=== PATIENT | female | born 1960 | race Caucasian/White ===

== ENCOUNTER 2018-11-23 07:09 | Emergency (ER) | payer BC ==
[2018-11-23 07:17] VITALS: BP 123/67
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
== END 2018-11-23 07:50 | disposition home or self-care (01) ==
LOC: UCEAST 07:09
DX: N39.0 Urinary tract infection, site not specified (principal); Z88.1 Allergy status to other antibiotic agents; Z88.8 Allergy status to other drugs, medicaments and biological substances
CPT/HCPCS: 81003; 87077; 87086; 87186; 99212; G0463

== ENCOUNTER 2019-04-18 09:53 | Emergency (ER) | payer BC ==
[2019-04-18] MEDS ORDERED: Silver Sulfadiazine 1%* 20 GM TOPICAL ONE (10:08)
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
[2019-04-18] MEDS ORDERED: Ibuprofen TAB* 400 MG PO ONE (10:19)
[2019-04-18 10:43] VITALS: BP 121/62
== END 2019-04-18 11:14 | disposition home or self-care (01) ==
LOC: UCEAST 09:53
DX: T20.10XA Burn of first degree of head, face, and neck, unspecified site, initial encounter (principal); T23.101A Burn of first degree of right hand, unspecified site, initial encounter; X12.XXXA Contact with other hot fluids, initial encounter; Y93.G3 Activity, cooking and baking; Y92.9 Unspecified place or not applicable; Z88.1 Allergy status to other antibiotic agents
CPT/HCPCS: 16000; 16020; 99212; A9270-GY; G0463

== ENCOUNTER 2019-11-19 07:12 | Emergency (ER) | payer BC ==
[2019-11-19 07:41] VITALS: BP 94/66
--- NOTE | 2019-11-19 07:57 | UC ---
Respiratory Complaint HPI - HPI Summary HPI Summary: 3 DAYS OF SINUS PRESSURE, RIGHT EAR PAIN, MILD SORE THROAT, COUGH AND CONGESTION. NO DOCUMENTED FEVER BUT IS COMPLAINING OF CHILLS. NO NAUSEA/ VOMITING. - History of Current Complaint Chief Complaint: UCRespiratory Stated Complaint: SINUS ISSUE Time Seen by Provider: 11/19/19 07:26 Hx Obtained From: Patient Hx Last Menstrual Period: 09/2008 Onset/Duration: Gradual Onset, Lasting Days, Still Present Timing: Constant Severity Initially: Moderate Severity Currently: Moderate Pain Intensity: 3 Pain Scale Used: 0-10 Numeric Character: Cough: Nonproductive Aggravating Factors: Nothing Alleviating Factors: Nothing Associated Signs And Symptoms: Positive: Chills, URI, Nasal Congestion, Sinus Discomfort. Negative: Fever, Wheezing - Allergies/Home Medications Allergies/Adverse Reactions: Allergies Allergy/AdvReac Type Severity Reaction Status Date / Time erythromycin Allergy Severe swelling/ra Uncoded 11/19/19 07:22 sh levaquin AdvReac leg Uncoded 11/19/19 07:22 weakness Home Medications: Home Medications Acetaminophen [Tylenol] 650 mg PO ONCE PRN 11/19/19 [History Confirmed 11/19/19] guaiFENesin [Mucinex] 1 tab PO ONCE PRN 11/19/19 [History Confirmed 11/19/19] PMH/Surg Hx/FS Hx/Imm Hx Previously Healthy: Yes - Surgical History Surgical History: Yes Surgery Procedure, Year, and Place: . breast implants 11/2011. D&C - Family History Known Family History: Positive: None - Pt denies FMHX, Non-Contributory - Social History Alcohol Use: Rare Substance Use Type: None Smoking Status (MU): Never Smoked Tobacco - Immunization History Hx Tetanus, Diphtheria Vaccination: Yes - 2 weeks ago Review of Systems All Other Systems Reviewed And Are Negative: Yes Constitutional: Positive: Chills, Fatigue ENT: Positive: Sore Throat, Ear Ache, Nasal Discharge, Sinus Congestion Respiratory: Positive: Cough Cardiovascular: Positive: Negative Gastrointestinal: Positive: Negative Physical Exam Triage Information Reviewed: Yes Appearance: Well-Appearing, No Pain Distress, Well-Nourished Vital Signs: Initial Vital Signs Temp 99.1 F 11/19/19 07:18 Pulse 103 11/19/19 07:18 Resp 18 11/19/19 07:18 BP 86/59 11/19/19 07:18 Pulse Ox 100 11/19/19 07:18 Vital Signs Reviewed: Yes Eyes: Positive: Conjunctiva Clear ENT: Positive: Hearing grossly normal, Pharynx normal, TMs normal Neck: Positive: Supple, Nontender, No Lymphadenopathy Respiratory Exam: Normal Cardiovascular Exam: Normal Abdomen Description: Positive: Soft Musculoskeletal: Positive: No Edema Neurological: Positive: Alert Psychological: Positive: Age Appropriate Behavior Skin: Negative: Rashes Respiratory Course/Dx - Course Course Of Treatment: PATIENT WITH LIKELY VIRAL SINUS INFECTION. ENCOURAGED CONSERVATIVE MANAGEMENT WITH REST, HYDRATION, IBUPROFEN. ALSO RECOMMENDED SHE USE AFRIN NASAL SPRAY TO HELP WITH HER CONGESTION AND SINUS PRESSURE. AMOXICILLIN SENT TO PHARMACY. IF SHE IS NOT FEELING IMPROVED OVER THE NEXT SEVERAL DAYS SHE WILL FILL THE RX. FOLLOW-UP WITH PCP IF NEEDED. - Differential Dx/Diagnosis Provider Diagnosis: Acute sinusitis Discharge ED - Sign-Out/Discharge Documenting (check all that apply): Patient Departure All imaging exams completed and their final reports reviewed: No Studies - Discharge Plan Condition: Stable Disposition: HOME Prescriptions: Amoxicillin PO (*) [Amoxicillin 500 MG CAP*] 1,000 mg PO Q12H #40 cap Patient Education Materials: Sinusitis (ED) Referrals: Casey Alberts MD [Primary Care Provider] - If Needed Additional Instructions: YOUR SYMPTOMS ARE LIKELY VIRALLY MEDIATED AND SHOULD RESOLVE ON THEIR OWN WITH TIME. NO INDICATION FOR ANTIBIOTICS AT PRESENT. REST, HYDRATE, OTC MEDS NEEDED. AMOXICILLIN SENT TO [facility]. IF YOU ARE NOT FEELING IMPROVED OVER THE NEXT SEVERAL DAYS GO AHEAD AND FILL RX. SEEK FOLLOW-UP IF YOU ARE NOT IMPROVING OVER THE NEXT 1-2 WEEKS. USE OTC AFRIN FOR NASAL CONGESTION. 2 SPRAYS IN EACH NOSTRIL TWICE DAILY NEEDED. DO NOT USE FOR MORE THAN 3-4 DAYS IN A ROW TO PREVENT DEVELOPING REBOUND CONGESTION. - Billing Disposition and Condition Condition: STABLE Disposition: Home
== END 2019-11-19 07:50 | disposition home or self-care (01) ==
LOC: UCEAST 07:12
DX: J01.90 Acute sinusitis, unspecified (principal); H92.01 Otalgia, right ear; R53.83 Other fatigue; J02.9 Acute pharyngitis, unspecified; Z88.1 Allergy status to other antibiotic agents
CPT/HCPCS: 99212; G0463